=== PATIENT | male | born 1960 | race Caucasian/White ===

== ENCOUNTER 2019-01-23 08:06 | Day surgery (SDC) | payer BC ==
[~2019-01-23] VITALS: Ht 170.2 cm; Wt 93.0 kg
[~2019-01-23 08:06] MED LIST: AMLO5CAP44 PO; ASPI81TA85 PO; LIDOCAINE 2% INJ 100 MG/5 ML SDV (FOR ANES.) As Ordered ONE; PROPOFOL 200 MG/20 ML VIAL As Ordered ONE; SIMV20TA2 PO
[2019-01-23] MEDS ORDERED: NS 1,000 ML IV ONE (09:00)
--- NOTE | 2019-01-23 09:43 | ROOR ---
Patient Name: Jason Alvarez Procedure Date: 01/23/2019 9:11 AM Date of : 1960 Age: 58 Room: [facility] Gender: Male Note Status: Finalized Procedure: Colonoscopy Indications: Screening for colorectal malignant neoplasm Providers: Quinten Guallpa MD Referring MD: Srinath Laws MD Requesting Provider: Medicines: Monitored Anesthesia Care Complications: No immediate complications. Procedure: Pre-Anesthesia Assessment: - Prior to the procedure, a History and Physical was performed, and patient medications and allergies were reviewed. The patient is competent. The risks and benefits of the procedure and the sedation options and risks were discussed with the patient. All questions were answered and informed consent was obtained. Patient identification and proposed procedure were verified by the physician, the nurse and the anesthesiologist in the procedure room. Mental Status Examination: alert and oriented. Airway Examination: normal oropharyngeal airway and neck mobility. Respiratory Examination: clear to auscultation. CV Examination: normal. Prophylactic Antibiotics: The patient does not require prophylactic antibiotics. Prior Anticoagulants: The patient has taken no previous anticoagulant or antiplatelet agents. ASA Grade Assessment: II - A patient with mild systemic disease. After reviewing the risks and benefits, the patient was deemed in satisfactory condition to undergo the procedure. The anesthesia plan was to use monitored anesthesia care (MAC). Immediately prior to administration of medications, the patient was re-assessed for adequacy to receive sedatives. The heart rate, respiratory rate, oxygen saturations, blood pressure, adequacy of pulmonary ventilation, and response to care were monitored throughout the procedure. The physical status of the patient was re-assessed after the procedure. The Colonoscope was introduced through the anus and advanced to the terminal ileum, with identification of the appendiceal orifice and IC valve. The colonoscopy was performed without difficulty. The patient tolerated the procedure well. Findings: The perianal and digital rectal examinations were normal. The terminal ileum appeared normal. Three sessile polyps were found in the transverse colon. The polyps were 6 to 8 mm in size. These polyps were removed with a cold snare. Resection and retrieval were complete. Verification of patient identification for the specimen was done by the physician and nurse using the patient's name, date and medical record number. Estimated blood loss was minimal. Non-bleeding external and internal hemorrhoids were found during retroflexion. The hemorrhoids were small. Impression: - The examined portion of the ileum was normal. - Three 6 to 8 mm polyps in the transverse colon, removed with a cold snare. Resected and retrieved. - Non-bleeding external and internal hemorrhoids. Recommendation: - Patient has a contact number available for emergencies. The signs and symptoms of potential delayed complications were discussed with the patient. Return to normal activities tomorrow. Written discharge instructions were provided to the patient. - High fiber diet. - Continue present medications. - Await pathology results. - Repeat colonoscopy in 3 - 5 years for surveillance based on pathology results. - Telephone GI clinic for pathology results in 2 weeks. - Return to primary care physician. Quinten Guallpa MD Quinten Guallpa MD 01/23/2019 9:43:06 AM Electronically signed by Quinten Guallpa MD Number of Addenda: 0 Note Initiated On: 01/23/2019 9:11 AM Estimated Blood Loss: Estimated blood loss was minimal.
[2019-01-23 10:02] VITALS: BP 137/93
== END 2019-01-23 10:13 | disposition home or self-care (01) ==
LOC: M OPP 08:06
PROVIDERS: ATTEND Internal Medicine Gastroenterology
DX: Z12.11 Encounter for screening for malignant neoplasm of colon (principal); K64.8 Other hemorrhoids; D12.3 Benign neoplasm of transverse colon; Z79.82 Long term (current) use of aspirin; Z79.899 Other long term (current) drug therapy; Z87.891 Personal history of nicotine dependence; Z88.0 Allergy status to penicillin

== ENCOUNTER 2019-04-08 07:37 | Emergency (ER) | payer OTHER, BC ==
[~2019-04-08] VITALS: Ht 170.2 cm; Wt 95.5 kg
[~2019-04-08 07:37] MED LIST changes: -LIDOCAINE 2% INJ 100 MG/5 ML SDV (FOR ANES.) As Ordered ONE; -PROPOFOL 200 MG/20 ML VIAL As Ordered ONE
[2019-04-08] MEDS ORDERED: LIDOCAINE W/EPINEPHRINE 1% 20ML VIAL SC ONE (08:15)
[2019-04-08 08:59] VITALS: BP 110/68
== END 2019-04-08 09:00 | disposition home or self-care (01) ==
LOC: M ED 07:37
DX: S01.01XA Laceration without foreign body of scalp, initial encounter (principal); W22.8XXA Striking against or struck by other objects, initial encounter; Y92.89 Other specified places as the place of occurrence of the external cause; Y99.0 Civilian activity done for income or pay; Z88.0 Allergy status to penicillin; Z79.82 Long term (current) use of aspirin; Z79.899 Other long term (current) drug therapy

== ENCOUNTER 2019-04-21 16:01 | Emergency (ER) | payer OTHER, BC ==
[~2019-04-21] VITALS: Ht 170.2 cm; Wt 95.5 kg
[~2019-04-21 16:01] MED LIST changes: -SIMV20TA2 PO; +SIMV20TA22 PO
[2019-04-21 18:18] VITALS: BP 132/87
== END 2019-04-21 18:19 | disposition home or self-care (01) ==
LOC: M ED 16:01
DX: Z48.02 Encounter for removal of sutures (principal); Z88.0 Allergy status to penicillin; Z79.82 Long term (current) use of aspirin; Z79.899 Other long term (current) drug therapy

== ENCOUNTER → 2020-12-22 | Outpatient (CLI) | payer OTHER, BC ==
[~2020-12-22] MED LIST changes: +AMLO5CAP45 PO; -ASPI81TA85 PO; +ASPI81TA86 PO; +ECOT81TA5 PO
--- NOTE | 2020-12-22 12:20 | ECGEPIP ---
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
[2020-12-22 12:42] LABS: BLOOD UREA NITROGEN 15 MG/DL (7-18); CALCIUM LEVEL 9.9 MG/DL (8.5-10.1); CARBON DIOXIDE LEVEL 31 MEQ/L (21-32); CHLORIDE LEVEL 106 MEQ/L (98-107); CREATININE FOR GFR 0.96 MG/DL (0.70-1.30); GLOMERULAR FILTRATION RATE > 60.0 (>56); GLUCOSE, FASTING 95 MG/DL (70-100); POTASSIUM SERUM 4.6 MEQ/L (3.5-5.1); SODIUM LEVEL 140 MEQ/L (136-145)
== END ==
LOC: M LAB 11:03
PROVIDERS: ATTEND Anesthesiology
DX: Z01.812 Encounter for preprocedural laboratory examination (principal); R03.0 Elevated blood-pressure reading, without diagnosis of hypertension

== ENCOUNTER → 2020-12-22 | Outpatient (CLI) | payer OTHER, BC | LOC: M LABSMTC 10:25 | PROVIDERS: ATTEND Anesthesiology | DX: Z01.812 Encounter for preprocedural laboratory examination (principal) ==

== ENCOUNTER → 2020-12-31 | Outpatient (CLI) | payer OTHER, BC | LOC: M LABSMTC 09:01 | PROVIDERS: ATTEND Anesthesiology | DX: Z01.812 Encounter for preprocedural laboratory examination (principal) ==

== ENCOUNTER 2021-01-05 11:26 | Day surgery (SDC) | payer BC ==
[~2021-01-05] VITALS: Ht 170.2 cm; Wt 97.1 kg
[~2021-01-05 11:26] MED LIST changes: +LR 1,000 ML IV ONE
[2021-01-05] MEDS ORDERED: ROCURONIUM BROMIDE 50 MG/5 ML VIAL As Ordered ONE (12:01)
[2021-01-05] MEDS ORDERED: propofoL 200 MG/20 ML VIAL As Ordered ONE (12:01)
[2021-01-05] MEDS ORDERED: LIDOCAINE 2% 100MG/5ML SDV (FOR ANES.) As Ordered ONE (12:01)
[2021-01-05] MEDS ORDERED: fentaNYL 250 MCG/5 ML INJECTION (J3010) As Ordered ONE (12:01)
[2021-01-05] MEDS ORDERED: ONDANSETRON 4MG/2ML VIAL As Ordered ONE (12:01)
[2021-01-05] MEDS ORDERED: dexameTHASONE 4 MG/ML 1ML VIAL (J1100 PER 1MG) As Ordered ONE (12:01)
[2021-01-05] MEDS ORDERED: MIDAZOLAM INJ 2MG/2ML VIAL (J2250 PER 1MG) As Ordered ONE (12:01)
[2021-01-05] MEDS ORDERED: BUPIVACAINE HCL 0.25% 30ML VIAL As Ordered ONE (12:36)
[2021-01-05] MEDS ORDERED: ACETAMINOPHEN 1000MG 100ML IV BTL (OFIRMEV) (J0131 PER 10MG) As Ordered ONE (13:07)
[2021-01-05] MEDS ORDERED: KETOROLAC 60MG 2ML VIAL As Ordered ONE (13:14)
[2021-01-05] MEDS ORDERED: SUGAMMADEX SODIUM 500 MG/5 ML VIAL (BRIDION) As Ordered ONE (13:14)
[2021-01-05] MEDS ORDERED: PHENYLephrine 500MCG 5ML (100MCG/ML) SYRINGE As Ordered ONE (13:18)
[2021-01-05] MEDS ORDERED: LABETALOL 100MG/20ML VIAL As Ordered ONE (13:40)
[2021-01-05] MEDS ORDERED: HYDR-3715 PO (15:02)
[2021-01-05] MEDS ORDERED: ONDANSETRON 4MG/2ML VIAL IV PRN (15:25)
[2021-01-05] MEDS ORDERED: oxyCODONE 5MG TAB PO PRN (15:25)
[2021-01-05] MEDS ORDERED: fentaNYL 100 MCG/2 ML INJECTION (J3010) IV PRN (15:25)
[2021-01-05] MEDS ORDERED: IBUPROFEN 600MG TAB PO PRN (15:25)
[2021-01-05] MEDS ORDERED: ACETAMINOPHEN TAB 650MG DOSE (2X325MG) PO PRN (15:25)
[2021-01-05] MEDS ORDERED: NORCO, ANEXSIA 5/325MG TABLET (HYDROcodone/ACETAMINOPHEN) PO PRN (15:30)
[2021-01-05 16:40] VITALS: BP 114/59
--- NOTE | 2021-01-10 06:09 | RO ---
OPERATIVE NOTE DATE OF OPERATION: 01/05/2021 PREOPERATIVE DIAGNOSIS: Incarcerated umbilical hernia. POSTOPERATIVE DIAGNOSIS: Incarcerated umbilical hernia. PROCEDURE PERFORMED: Robotic-assisted laparoscopic repair of incarcerated umbilical hernia with Parietex mesh. The mesh utilized was Cov[employer]ien Parietex, reference code [id number] and lot number [id number]. SURGEON: Floyd Izquierdo MD ASH COLLECTOR: Ivett Caicedo. Ivett's assistance was necessary for management of the da Cedric Xi robot. She assisted with placement of the trocars, insertion and change of instruments, passage of the mesh and sutures, and suturing of the port sites. ANESTHESIA: General. INDICATIONS FOR THE PROCEDURE: The patient is a 60-year-old man with a history of a small bulge at the umbilicus. Examination confirmed an incarcerated umbilical hernia and he is now for repair of same. OPERATIVE PROCEDURE: The patient was brought to the operating room and placed on the table in a supine position. He was placed under general endotracheal anesthesia. The patient's abdomen was prepped and draped in a sterile fashion. 0.25% Marcaine was infiltrated at each of the trocar sites. The initial incision was in the left upper quadrant. A short transverse incision was made and the Veress needle was inserted. After a positive hanging drop test, the abdomen was inflated with carbon dioxide gas. An 8-mm robotic port was placed over the scope and advanced through the abdominal wall without difficulty. Initial examination showed some omental fat adherent into his incarcerated umbilical hernia. The liver appeared normal. Visualized portions of the small and large bowel were normal. A second 8-mm port was placed approximately 10-12 cm more inferior and lateral in the left mid abdomen and a third port was placed in the left lower quadrant. The patient was placed in an approximately 6-8 degree Trendelenburg position to level the abdomen and was rolled approximately 5 degrees to the right. The patient cart of the da Cedric Xi robot was brought into position and the endoscope arm was docked to the middle port. Targeting took place on the umbilical hernia and the additional robotic arms were docked. A fenestrated bipolar and cauterizing scissor were then inserted. I then moved to the control console to proceed. Inspection showed omentum adherent up into the hernia sac. This was dissected free by dividing some adhesions around the edges of the hernia and reducing the omentum into the abdomen. I then created a peritoneal flap, elevating the peritoneum with the overlying preperitoneal fat off of the fascia starting approximately 4 cm to the left of the midline and extending across the midline a similar distance to the right. The peritoneal sac of the hernia was reduced into the abdomen, though there were several small perforations noted. The fascial defect was approximately 1.5 cm in size and the abdominal pressure was reduced to 10 mmHg and the fascial defect was closed with a longitudinal suture of 1-0 STRATAFIX. The preperitoneal space would clearly readily accept an approximately 7 cm patch. I, therefore, selected a 9 cm round Covidien Parietex patch and this was trimmed by Ivett Caicedo to 7 cm in diameter. This was inserted into the abdomen and placed into the preperitoneal space with the adherent side facing the abdominal wall. This was then sutured across the transverse midline with a 2-0 STRATAFIX, which was then carried around the inferior half of the mesh. A second STRATAFIX was placed to suture the longitudinal midline and the upper half of the mesh circumferentially. The peritoneal flap was sutured with a third V-Loc suture, 2-0. A 2-0 Vicryl was used to close the small defects in the peritoneum. This appeared to give an excellent repair of the patient's hernia. There was no bleeding of any significance. The robotic instruments were removed and the robot was undocked and withdrawn. The abdomen was deflated and the trocars were all removed. Ivett Caicedo proceeded to close the trocar sites with buried 4-0 Vicryl sutures. Light dressings were applied. The patient tolerated the procedure well without apparent complication. He was awakened in the operating room, extubated, and moved to the recovery room in stable condition.
== END 2021-01-05 16:55 | disposition home or self-care (01) ==
LOC: M SDC 11:26
PROVIDERS: ATTEND Surgery
DX: K42.0 Umbilical hernia with obstruction, without gangrene (principal); I10 Essential (primary) hypertension; E78.5 Hyperlipidemia, unspecified; Z88.0 Allergy status to penicillin; Z79.899 Other long term (current) drug therapy; Z87.891 Personal history of nicotine dependence
CPT/HCPCS: 49653; C1781; J0131; J1100; J1885; J2250; J2370; J2405; J3010; S2900

== ENCOUNTER → 2021-03-16 | Outpatient (CLI) | payer BC ==
[~2021-03-16] MED LIST changes: +HYDR-3715 PO; -LR 1,000 ML IV ONE
--- NOTE | 2021-03-16 10:34 | REP ---
INDICATION: PAIN. COMPARISON: None. TECHNIQUE: Four views FINDINGS: No acute fracture or destructive osseous lesion. The mortise is intact. There is a plantar calcaneal heel spur. IMPRESSION: No acute osseous abnormality. <Electronically signed by Sathya Fletcher > 03/16/21 1123
== END ==
LOC: M WUC 10:08
PROVIDERS: ATTEND Physician Assistant
DX: M25.572 Pain in left ankle and joints of left foot (principal)

== ENCOUNTER → 2021-04-28 | Outpatient (REF) ==
[~2021-04-28] MED LIST changes: -AMLO5CAP45 PO; +AMLO5CAP53 PO
== END ==
LOC: M LABSMTC 12:58
PROVIDERS: ATTEND Pediatrics
DX: Z11.52 Encounter for screening for COVID-19 (principal); Z20.822 Contact with and (suspected) exposure to COVID-19

== ENCOUNTER → 2023-08-02 | Outpatient (REF) | payer BC ==
[2023-08-02 11:00] LABS: BASO % 0.5 % (0.0-1.0); EOS # 0.1 10^3/uL (0.0-0.5); EOS % 1.4 % (0.0-3.0); HEMATOCRIT 47.5 % (42.0-52.0); HEMOGLOBIN 16.3 g/dl (13.5-17.5); LYMPH # 1.5 10^3/uL (1.5-5.0); LYMPH % 26.2 % (24.0-44.0); MEAN CORPUSCULAR HEMOGLOBIN 31.2 pg (27.0-33.0); MEAN CORPUSCULAR HGB CONC 34.3 g/dl (32.0-36.5); MONO # 0.5 10^3/uL (0.0-0.8); MONO % 8.4 % (2.0-8.0); NEUTROPHILS # 3.6 10^3/uL (1.5-8.5); NEUTROPHILS % 63.3 % (36.0-66.0); PLATELET COUNT, AUTOMATED 184 10^3/uL (150-450); RED BLOOD COUNT 5.22 10^6/uL (4.30-6.10); WHITE BLOOD COUNT 5.6 10^3/uL (4.0-10.0)
[2023-08-02 11:20] LABS: PSA SCREENING 0.42 NG/ML (< 4.00)
[2023-08-02 11:23] LABS: ALBUMIN 4.3 G/DL (3.2-5.2); ALKALINE PHOSPHATASE 73 U/L (46-116); ALT/SGPT 41 U/L (7.0-40); AST/SGOT 26 U/L (<34); BILIRUBIN,TOTAL 0.5 MG/DL (0.3-1.2); BLOOD UREA NITROGEN 15 MG/DL (9-23); CALCIUM LEVEL 9.7 MG/DL (8.3-10.6); CARBON DIOXIDE LEVEL 27 MMOL/L (20-31); CHLORIDE LEVEL 109 MMOL/L (98-107); CHOLESTEROL LEVEL 181 MG/DL (<200); CHOLESTEROL RISK RATIO 4.28 (<5); GLOMERULAR FILTRATION RATE > 60.0 (>49); GLUCOSE, FASTING 127 MG/DL (74-106); HDL CHOLESTEROL 42.2 MG/DL (>40); NON-HDL-C 138.8 MG/DL; POTASSIUM SERUM 4.6 MMOL/L (3.5-5.1); SODIUM LEVEL 139 MMOL/L (136-145); TOTAL PROTEIN 7.6 G/DL (5.7-8.2); TRIGLYCERIDES LEVEL 129 MG/DL (<150)
== END ==
LOC: M LABWUC 09:31
PROVIDERS: ATTEND Family Medicine
DX: Z12.5 Encounter for screening for malignant neoplasm of prostate (principal); M25.50 Pain in unspecified joint; I10 Essential (primary) hypertension